=== PATIENT | female | born 1995 | race Caucasian/White ===

== ENCOUNTER 2020-01-04 16:26 | Emergency (ER) | payer OTHER, SELFPAY ==
[2020-01-04 16:33] VITALS: BP 117/79; PULSE 95; RESP 16; TEMP 36.8; O2SAT 100
--- NOTE | 2020-01-04 16:43 | ED.GENADULT ---
HPI - General Adult General Chief complaint: Upper Respiratory Infection Stated complaint: mouth sores/swollen lymph nodes Time Seen by Provider: 01/04/20 16:44 Source: patient Mode of arrival: ambulatory Limitations: no limitations History of Present Illness HPI narrative: 24-year-old female patient presents to the [facility] with complaints of runny nose, sores in her mouth and bilateral ear pain. Patient states that most of her symptoms started about 5 days ago however the mouth sores and worsening runny nose started yesterday. Patient denies any fevers that she is aware of. Patient denies any sore throat, cough, chest pain, shortness breath, abdominal pain, nausea, vomiting or diarrhea. Patient states that she did not receive a flu shot this year. Patient denies any or breast-feeding at this time. Related Data Home Medications Medication Instructions Recorded Confirmed Control Pills 01/04/20 bupropion HCl [Wellbutrin XL] 300 mg PO QAM 01/04/20 01/04/20 buspirone 15 mg PO DAILY 01/04/20 01/04/20 Allergies Allergy/AdvReac Type Severity Reaction Status Date / Time No Known Allergies Allergy Verified 01/04/20 16:41 Review of Systems Review of Systems: Narrative: CONSTITUTIONAL: Denies fever, chills, or sweats. EYES: Denies visual changes, redness, or discharge. ENT: Positive rhinorrhea, congestion, denies sore throat, or otalgia. Positive mouth sores CARDIOVASCULAR: Denies chest pain, palpitations, or edema. RESPIRATORY: Denies cough or dyspnea. GASTROINTESTINAL: Denies abdominal pain, nausea, vomiting, or diarrhea. GENITOURINARY: Denies dysuria or hematuria. SKIN: Denies rash or itching. MUSCULOSKELETAL: Denies back pain, joint pain, or myalgia. NEUROLOGIC: Denies headache, numbness, or weakness. PSYCHIATRIC: Denies anxiety or depression. [facility] Past Medical History Medical History (Updated 01/04/20 @ 16:53 by FAUSTINO Manzano) Anxiety Family History Family History Other Hypertension Social History Social History Smoking status: Never smoker Second hand tobacco smoke exposure: No Alcohol intake: never Comments At the time of my signature I agree with nursing past medical history, surgical, social, and family history. There is no relevant family history pertinent to the presenting complaint. Exam Narrative: Exam Narrative: GENERAL: Well-appearing, well-nourished, and in no acute distress. HEAD: Normocephalic, atraumatic. No tenderness noted to frontal maxillary sinuses on palpation. EYES: PERRLA and EOMI. ENT: Nares with erythema and edema noted bilaterally, no rhinorrhea or epistaxis. Mucous membranes moist. Bilateral TMs does appear to have some fluid behind them but no erythema present. Posterior pharynx with no erythema, tonsillar large, exudates or lesions present. There is a small ulcer noted behind the upper left molar as well as another ulcer noted to the gumline under the upper lip. NECK: Supple. Positive cervical lymphadenopathy and tenderness noted on palpation CHEST: Clear to auscultation. No respiratory distress. HEART: Regular rate and rhythm. No murmur heard. Normal peripheral pulses. ABDOMEN: Soft, nontender, nondistended, normal active bowel sounds. EXTREMITIES: Normal range of motion. No edema. SKIN: Warm, dry, no rash. NEURO: No focal deficits. Alert and oriented x3. Course Vital Signs Vital signs: Vital Signs Temperature 36.8 C 01/04/20 16:33 Pulse Rate 95 01/04/20 16:33 Respiratory Rate 16 01/04/20 16:33 Blood Pressure 117/79 01/04/20 16:33 Pulse Oximetry 100 01/04/20 16:33 Temperature 36.8 C 01/04/20 16:33 Pulse Rate 95 01/04/20 16:33 Respiratory Rate 16 01/04/20 16:33 Blood Pressure 117/79 01/04/20 16:33 Pulse Oximetry 100 01/04/20 16:33 Vital signs reviewed. Medical Decision Making Differe
== END 2020-01-04 17:00 | disposition home or self-care (01) ==
PROVIDERS: Emergency Provider Nurse Practitioner Family; PCP Family Medicine
DX: K12.0 Recurrent oral aphthae (principal); J06.9 Acute upper respiratory infection, unspecified; H73.893 Other specified disorders of tympanic membrane, bilateral
CPT/HCPCS: 99213; G0463

== ENCOUNTER 2021-08-17 11:41 | Emergency (ER) | payer OTHER, SELFPAY ==
--- NOTE | 2021-08-17 11:56 | ED.SKABFB ---
HPI - Skin/Abscess/Foreign Bdy General Chief complaint: Skin/Abscess/Foreign Body Stated complaint: pos skin abcess Time Seen by Provider: 08/17/21 11:56 Source: patient and RN notes reviewed History of Present Illness HPI narrative: Patient is a 26-year-old female who presents the urgent care with complaints of a possible abscess to the right vaginal lip. Patient states that she noticed it on Wednesday and believes it was an ingrown hair and tried to pop it . Patient states that over the last 24 hours it is gotten more painful to wear pants and more swollen. Patient denies any history of abscesses to the vaginal region. Denies of any fever, chills, nausea, vomiting. Patient has not put anything [id number] on the area. No other acute complaints. No acute distress noted. Patient read the plan of care. Some parts of this dictation were generated by voice recognition software and may contain typographical and/or grammatical inaccuracies. Related Data Home Medications Medication Instructions Recorded Confirmed Control Pills 01/04/20 02/14/21 bupropion HCl [Wellbutrin XL] 300 mg PO QAM 01/04/20 02/14/21 buspirone 15 mg PO DAILY 01/04/20 02/14/21 Allergies Allergy/AdvReac Type Severity Reaction Status Date / Time No Known Allergies Allergy Verified 02/14/21 15:22 Review of Systems Review of Systems: CONSTITUTIONAL: Denies fever, chills, or sweats. EYES: Denies visual changes, redness, or discharge. ENT: Denies rhinorrhea, congestion, sore throat, or otalgia. CARDIOVASCULAR: Denies chest pain, palpitations, or edema. RESPIRATORY: Denies cough or dyspnea. GASTROINTESTINAL: Denies abdominal pain, nausea, vomiting, or diarrhea. GENITOURINARY: Denies dysuria or hematuria. SKIN: Reports of pain and swelling to the right labia, possible abscess MUSCULOSKELETAL: Denies back pain, joint pain, or myalgia. NEUROLOGIC: Denies headache, numbness, or weakness. All other systems reviewed are negative, except as documented in HPI. [facility] Past Medical History Medical History Anxiety Family History Family History Other Hypertension Social History Social History Smoking status: Never smoker Second hand tobacco smoke exposure: No Alcohol intake: never Comments At the time of my signature, I reviewed and agree with the nursing past medical, surgical, social, and family history. There is no relevant family history pertinent to the patient complaint. Exam Narrative: GENERAL: This is a well-nourished, well-developed patient, in no apparent distress. HEAD: normocephalic, atraumatic. EYES: PERRL. Sclera clear/white. Vision is grossly intact. EARS: External ears normal NOSE: External nose normal with no obvious nasal discharge, nares without redness, no rhinorrhea. THROAT: Mucous membranes moist NECK: Neck supple CARDIOVASCULAR: Regular rate and rhythm without murmurs, gallops, or rubs. RESPIRATORY: Clear to auscultation. Breath sounds equal bilaterally. No wheezes, rales, or rhonchi. SKIN: 1 cm firm clear draining folliculitis noted to the right labia without surrounding erythema, mild tenderness NEURO: awake, alert, and oriented to person, place and time. There were no obvious focal neurologic abnormalities. EXTREMITIES: No clubbing, cyanosis, or edema Course Vital Signs Vital signs: Vital Signs Temperature 98.5 F 08/17/21 11:57 Pulse Rate 97 08/17/21 11:57 Respiratory Rate 16 08/17/21 11:57 Blood Pressure 119/77 08/17/21 11:57 Pulse Oximetry 100 08/17/21 11:57 Temperature 98.5 F 08/17/21 11:57 Pulse Rate 97 08/17/21 11:57 Respiratory Rate 16 08/17/21 11:57 Blood Pressure 119/77 08/17/21 11:57 Pulse Oximetry 100 08/17/21 11:57 Reviewed MDM - Skin/Abscess/Foreign Bdy MDM Narrative Medical decis
[2021-08-17 11:57] VITALS: BP 119/77; PULSE 97; RESP 16; TEMP 36.9; O2SAT 100
== END 2021-08-17 12:10 | disposition home or self-care (01) ==
PROVIDERS: Emergency Provider Nurse Practitioner Family; PCP Family Medicine
DX: L73.9 Follicular disorder, unspecified (principal); F41.9 Anxiety disorder, unspecified
CPT/HCPCS: 99213; G0463

== ENCOUNTER 2023-07-30 15:34 | Emergency (ER) | payer OTHER, SELFPAY ==
[2023-07-30 15:38] VITALS: BP 123/78; PULSE 108; RESP 15; TEMP 36.8; O2SAT 100
--- NOTE | 2023-07-30 16:09 | ED.PREGNANCY ---
HPI - General Chief complaint: Vaginal Bleeding Stated complaint: 5 wk preg, bleeding Time Seen by Provider: 07/30/23 15:46 History of Present Illness HPI Narrative: Patient is a 28-year-old female presenting with vaginal bleeding. Patient states that she is approximately 5 weeks . She is unsure last menstrual period, was sometime in May. States that she had her blood drawn yesterday with Dr. Feliberto Bazzi but she has not received a call with the results. States that she has had very mild intermittent cramping in her pelvis. States that it is not in a specific place. States that it moves around. Today she developed light vaginal bleeding. States that she mostly noticed it with wiping. No lightheadedness, chest pain, shortness of breath, vomiting, dysuria, leg swelling. Related Data Allergies Allergy/AdvReac Type Severity Reaction Status Date / Time No Known Allergies Allergy Verified 07/30/23 15:41 Review of Systems Review of Systems: All systems reviewed & are unremarkable except as noted in HPI and below Exam Narrative: GENERAL: Well-appearing, well-nourished, and in no acute distress. Pleasant and cooperative HEAD: Normocephalic, atraumatic. EYES: PERRLA and EOMI. ENT: Nares clear, no rhinorrhea or epistaxis. Mucous membranes moist. NECK: Supple. CHEST: No respiratory distress. HEART: Regular rate and rhythm ABDOMEN: Soft, nontender, nondistended EXTREMITIES: Normal range of motion. No edema. SKIN: Warm, dry, no rash. NEURO: Alert and oriented x3. PSYCH: Normal mood and affect. Course Vital Signs Vital signs: Vital Signs Temperature 98.3 F 07/30/23 15:38 Pulse Rate 108 H 07/30/23 15:38 Respiratory Rate 15 07/30/23 15:38 Blood Pressure 123/78 07/30/23 15:38 Pulse Oximetry 100 07/30/23 15:38 Oxygen Delivery Room Air 07/30/23 15:38 Temperature 98.3 F 07/30/23 15:38 Pulse Rate 108 H 07/30/23 15:38 Respiratory Rate 15 07/30/23 15:38 Blood Pressure 123/78 07/30/23 15:38 Pulse Oximetry 100 07/30/23 15:38 Oxygen Delivery Room Air 07/30/23 15:38 MDM - OB/Uterine Contractions MDM Narrative Medical decision making narrative: Patient is a 28-year-old female presenting with vaginal bleeding in the setting of early . Vitals are stable. Exam remarkable for the above. Her abdomen soft and benign. Absolutely no tenderness. Blood work with undetectable beta-hCG. CBC is unremarkable. Suspect that the patient may have had an early that has since spontaneously terminated given the undetectable beta-hCG. I am unable to see the lab work that the TELEHEALTH DIRECTOR ludmila yesterday. Advised that she call their clinic and schedule follow-up. Appropriate return precautions given. Patient voiced understanding and is agreeable with plan. Discharged in stable condition. Differential Diagnosis Differential diagnosis: Likely other (vaginal bleeding, miscarriage, bleeding in early ) Medical Records Attestation: I reviewed the patient's medical records. Lab Data Attestation: I reviewed the patient's lab results. 07/30/23 16:35 Labs: Lab Results 07/30/23 Range/Units 16:35 WBC 9.6 (4.5-10.0) K/mm3 RBC 4.07 L (4.2-5.4) M/mm3 Hgb 12.4 (12.0-15.0) g/dL Hct 37.7 (37.0-47.0) % MCV 92.6 (80-100) fl MCH 30.5 (26-34) pg MCHC 32.9 (32-36) g/dl RDW 11.8 (11.5-14.5) % Plt Count 323 (150-375) k/mm3 MPV 9.4 (7.4-10.4) fl Immature Gran % (Auto) 0.2 (0-0.5) % Neut % (Auto) 74.8 H (45.5-73.1) % Lymph % (Auto) 17.9 L (18.3-44.2) % [place] % (Auto) 6.1 (2.6-8.5) % Eos % (Auto) 0.5 (0-4.4) % Baso % (Auto) 0.5 (0.2-1.2) % Lymph # (Auto) 1.73 (0.9-3.2) K/mm3 [place] # (Auto) 0.6 (0.1-0.6) K/mm3 Eos # (Auto) 0.1 (0-0.3) K/mm3 Baso # (Auto) 0.1 (0.0-0.1) K/mm3 Abs Immat Gran (auto) 0.02 (0.00-0.031) K/mm3 Absolute Neuts (auto) 7.2 H (1.3-6.7) K/mm3 Absolute Nucleated RBC 0.0 (0.0
[2023-07-30 16:43] LABS: Basophils Absolute Auto 0.1 K/mm3 (0.0-0.1); Basophils Percent Auto 0.5 % (0.2-1.2); Eosinophils Absolute Auto 0.1 K/mm3 (0-0.3); Eosinophils Percent Auto 0.5 % (0-4.4); Hematocrit 37.7 % (37.0-47.0); Hemoglobin 12.4 g/dL (12.0-15.0); Immature Granulocyte Absolute 0.02 K/mm3 (0.00-0.031); Immature Granulocyte Percent A 0.2 % (0-0.5); Lymphocytes Absolute Auto 1.73 K/mm3 (0.9-3.2); Lymphocytes Percent Auto 17.9 % (18.3-44.2); Mean Corpuscular HGB Conc 32.9 g/dl (32-36); Mean Corpuscular Hemoglobin 30.5 pg (26-34); Mean Corpuscular Volume 92.6 fl (80-100); Mean Platelet Volume 9.4 fl (7.4-10.4); Monocytes Absolute Auto 0.6 K/mm3 (0.1-0.6); Monocytes Percent Auto 6.1 % (2.6-8.5); Neutrophils Absolute Auto 7.2 K/mm3 (1.3-6.7); Neutrophils Percent Auto 74.8 % (45.5-73.1); Platelet Count Result 323 k/mm3 (150-375); Red Blood Count 4.07 M/mm3 (4.2-5.4); Red Cell Distribution Width 11.8 % (11.5-14.5); White Blood Count 9.6 K/mm3 (4.5-10.0)
[2023-07-30 17:08] LABS: Beta HCG Quantitative < 2.39 mIU/ML
== END 2023-07-30 19:04 | disposition home or self-care (01) ==
PROVIDERS: Emergency Provider Emergency Medicine; PCP Family Medicine
DX: N93.9 Abnormal uterine and vaginal bleeding, unspecified (principal)
CPT/HCPCS: 36415; 84702; 85025; 99283

== ENCOUNTER 2024-04-18 12:20 | Observation (INO) | payer OTHER, SELFPAY ==
[2024-04-18] VITALS (60 sets, daily range): BP systolic 109–133; BP diastolic 62–78; PULSE 102–125; TEMP 36.2; O2SAT 93–100
--- NOTE | ~2024-04-18 | US_ITS ---
EXAMINATION: US OB follow up DATE: 04/18/2024 14:43 INDICATION: position. Third trimester. In labor. TECHNIQUE: Real-time ultrasound of the pelvis was performed. COMPARISON: None. FINDINGS: There is a single living fetus in vertex presentation. The placenta is left posterior. heart r ate is 138 beats per minute (bpm). The amniotic fluid index is 15.8 cm, which is normal. The following biometric data were obtained: Biparietal diameter (BPD): 8.6 cm; head circumference (HC): 30.6 cm; abdominal circumference (AC): 29 .8 cm; femur length (FL): 6.3 cm. These measurements are concordant. Estimated weight is 2208 g +/- 331 g, which correlates with the 52nd percentile when 06/05/24 is used as estimated date of delivery. As single measurements, these parameters are each equal to the following estimated gestational ages: BPD: 34 weeks 5 days. HC: 34 weeks 1 days. AC: 33 weeks 6 days. FL: 32 weeks 3 days. estimated gestational age based solely on measurements from this exam is 33 weeks 6 days +/- 2 weeks 3 days. IMPRESSION: 1. Single living fetus in vertex presentation. 2. Estimated weight is 2208 g +/- 331 g, which correlates with the 52nd percentile when 06/05/24 is used as estimated date of delivery. Reviewed, dictated and finalized at location A.
[2024-04-18] MEDS: TERBUTALINE SULFATE 1 MG/ML VIAL 0.25 MG SUB-Q (13:29)
[2024-04-18 13:32] LABS: Appearance Urine Clear (Clear); Bacteria Urine 2+ /hpf; Bilirubin Urine Negative (Negative); Blood Urine Negative (Negative); Color Urine Yellow (Yellow); Glucose Urine UA Negative (Negative); Ketones Urine Negative (Negative); Leukocyte Esterase Ur 2+ LEU/UL (Negative); Need Manual Microscopic Reviewed; Nitrate Urine Negative (Negative); Non Pathogenic Casts 0-2; Protein Urine Negative (Negative); RBC Urine 0-2 /hpf (0-2); Specific Grav Ur 1.006 (1.001-1.035); Squamous Epithelial Cell Urine Occasional /hpf (Few); Urobilinogen Urine 0.2 mg/dL (<2.0)
[2024-04-18 13:38] LABS: Add Urine Microscopic? YES
[2024-04-18] MEDS: MAGNESIUM SULF 4 GM/WATER100ML 4 GM/100 ML BAG IVPB (13:45)
[2024-04-18] MEDS: LACTATED RINGERS 1,000 ML 75 ML IV CONT (13:45)
[2024-04-18] MEDS: BETAMETHASONE SOD PHOS/ACETATE 30 MG/5 ML VIAL 12 MG IM (13:58)
[2024-04-18] MEDS: MAGNESIUM SULF 20GM/WATER500ML 500 ML 50 MG IV CONT (14:18)
--- NOTE | 2024-04-18 15:15 | PM.IMHP ---
H&P: HPI History of Present Illness Date/Time: 04/18/24 15:15 Chief Complaint: Contractions Narrative: 28-year-old 1 para 0 whose last menstrual period was 08/30/2023, EDC is 06/05/2024, confirmed by 6 week ultrasound who presents at 33 weeks gestation with contractions. Cervix was noted to be 3 and thin admission she has been given a dose of terbutaline followed by magnesium sulfate which were slowly rising her contractions have decreased. The head is vertex and breech fluid is normal. The had been otherwise uncomplicated to this point with a normal NIPT and a normal diabetic screen Meds Home Medications and Allergies Home Medications Medication Instructions Recorded Confirmed Type bupropion HCl 300 mg 24 hr tablet, mg PO 04/18/24 History extended release buspirone 15 mg tablet mg 04/18/24 History Allergies Allergy/AdvReac Type Severity Reaction Status Date / Time No Known Allergies Allergy Verified 07/30/23 15:41 Vital Signs Vital Signs - 24 hr 04/18/24 13:00 04/18/24 13:48 04/18/24 13:53 Pulse Rate 102 H 109 H Blood Pressure 133/76 126/68 Pulse Oximetry 98 96 04/18/24 13:58 04/18/24 14:00 04/18/24 14:03 Pulse Rate 124 H Blood Pressure 120/76 Pulse Oximetry 96 95 04/18/24 14:08 04/18/24 14:13 04/18/24 14:15 Pulse Rate 116 H Blood Pressure 122/78 Pulse Oximetry 95 95 04/18/24 14:18 04/18/24 14:23 04/18/24 14:28 Pulse Rate Blood Pressure Pulse Oximetry 95 97 95 04/18/24 14:30 04/18/24 14:33 04/18/24 14:38 Pulse Rate 116 H Blood Pressure 123/78 Pulse Oximetry 95 93 04/18/24 14:43 04/18/24 14:45 04/18/24 14:48 Pulse Rate 107 H Blood Pressure 120/71 Pulse Oximetry 95 96 04/18/24 14:53 04/18/24 14:58 04/18/24 15:00 Pulse Rate 111 H Blood Pressure 120/76 Pulse Oximetry 95 96 04/18/24 15:03 04/18/24 15:08 04/18/24 15:13 Pulse Rate Blood Pressure Pulse Oximetry 95 95 96 04/18/24 15:15 04/18/24 14:46 Pulse Rate 119 H 107 H Blood Pressure 121/71 120/71 Pulse Oximetry Exam Const: General: cooperative, healthy appearing and comfortable Nutritional Appearance: average body habitus Orientation/consciousness: oriented to person, oriented to place and oriented to time HENMT: Head: normal to inspection Resp: Effort & Inspection: normal respiratory effort Cardio: Rate: regular rate Rhythm: regular rhythm Heart sounds: S1 normal heart sound present and S2 normal heart sound present GI: Inspection: normal to inspection ( gravid soft uterus) : External Female Exam: normal external appearance Speculum Exam - Vagina: normal appearance of the vagina Speculum Exam - Cervix: normal appearance of the cervix ( RN exam is 3 and 90%. FHT reassuring with uterine contractions now regula) H&P: Results Labs Labs: Urine 04/18/24 Range/Units 12:48 Urine Color Yellow (Yellow) Urine Appearance Clear (Clear) Urine pH 7.0 (5.0-9.0) Ur Specific [place] 1.006 (1.001-1.035) Urine Protein Negative (Negative) mg/dL Urine Glucose (UA) Negative (Negative) mg/dL Assessment and Plan Assessment and plan (1) labor: Code(s): O60.00 - labor without delivery, unspecified trimester Status: Acute Plan was stabilized with magnesium. Was given dose of steroids. Discuss with tertiary care center about transfer
--- NOTE | 2024-04-18 15:22 | PM.DS ---
DS: Admitting Diagnosis Discharge Date Admitting Diagnosis pre term labor at 33 weeks DS: Discharge Diagnosis Discharge Diagnosis (1) labor: Code(s): O60.00 - labor without delivery, unspecified trimester Status: Acute DS: Summary Hospital Course Reason for hospitalization: pre term labor at 33 weeks Hospital Course: 28-year-old 1 para 0 who presented at 33 and half weeks gestation with could irregular contractions. She was treated with terbutaline with and magnesium sulfate. She stabilized post noted be 3cm. Discussion with [facility] was undertaken and they accepted the patient as a transfer on magnesium. She was given a steroid as well Time Spent with Patient Time attestation: Total time spent providing and/or coordinating discharge services: Exam Const: General: cooperative, healthy appearing and comfortable Nutritional Appearance: average body habitus Orientation/consciousness: oriented to person, oriented to place and oriented to time HENMT: Head: normal to inspection Chest: Chest palpation & inspection: normal inspection of the chest Resp: Effort & Inspection: normal respiratory effort Cardio: Rate: regular rate Rhythm: regular rhythm Heart sounds: S1 normal heart sound present and S2 normal heart sound present GI: Inspection: normal to inspection : External Female Exam: normal external appearance Speculum Exam - Vagina: normal appearance of the vagina DS: Data Data Completed and Pending Labs on day of discharge: Labs from last 24 hours 04/18/24 12:48 Urine Color Yellow Urine Appearance Clear Urine pH 7.0 Ur Specific [place] 1.006 Urine Protein Negative Urine Glucose (UA) Negative Urine Ketones Negative Ur Blood (Man) Negative Urine Nitrate Negative Urine Bilirubin Negative Urine Urobilinogen 0.2 Add Ur Microanalysis Reviewed Leukocyte Esterase Rfl 2+ H Urine RBC 0-2 Urine WBC 6-10 H Ur Squamous Epith Cells Occasional Urine Bacteria 2+ H Urine Casts 0-2 Discharge Plan Discharge Attending physician on discharge: Panfilo Rodriguez Discharging Clinician: Panfilo Rodriguez Patient Disposition: Acute Care Hospital Activity: no straining and pelvic rest Diet: heart healthy Wound Care Instructions: follow printed instructions Follow-up/Referrals: Panfilo Rodriguez MD [Physician] - Discharge Medications: Continued buspirone 15 mg tablet bupropion HCl 300 mg tablet extended release 24 hr PO Date of admission: 04/18/24 12:20 Primary Care Provider: Sofia Mariscal Admitting Provider: Panfilo Rodriguez Attending physician on admission: Panfilo Rodriguez Condition: Stable
--- NOTE | 2024-04-18 16:30 | OBADM ---
This patient, Cristal Monge, admitted to the OB room OB Post 115 for observation. Patient/family oriented to hospital policies and general routines including ID bracelet, bed and alarms, visiting hours, pain management, procedures, bathroom and other care routines, personal items, smoking policy, room service/diet, and visiting hours. Patient/Family are encouraged to report perceived risks to care and to ask questions if they do not understand what they are told or what they should do.
--- NOTE | 2024-04-18 19:26 | PC.NURSE ---
Pt transferred to [facility] per Dr. Feliberto Bazzi's orders via ambulance with [facility] transport team.
== END 2024-04-18 19:26 | disposition short-term general hospital (02) ==
PROVIDERS: Admitting Provider Obstetrics & Gynecology; PCP Family Medicine; Visit Provider Obstetrics & Gynecology
DX: O60.03 Preterm labor without delivery, third trimester (principal); Z3A.33 33 weeks gestation of pregnancy
CPT/HCPCS: 76816; 81001; 87086; 96365; 96366; 96372; G0378; G0379; J0702; J3105; J3475; J7120